=== PATIENT | female | born 1990 | race Caucasian/White ===

== ENCOUNTER 2017-08-09 17:41 | Emergency (ER) | payer BC, MEDICAID ==
[2017-08-09] MEDS ORDERED: 0.9 % SODIUM CHLORIDE 1,000 ML BAG IV ONE ×2 (18:05→18:37)
--- NOTE | 2017-08-09 18:09 | Emergency Department Record ---
History of Present Illness - General Chief complaint: Nausea, Vomiting, Diarrhea Stated complaint: DIARRHEA,ABD PAIN Time Seen by Provider: 08/09/17 18:01 Source: Patient Mode of Arrival: Ambulatory Limitations: No limitations - History of Present Illness Initial comments: The patient is here due to a 14 hour hx of very frequent watery diarrhea with abdominal cramping. She states she has been having the stools every 30 minutes at times and but denies any fever, vomiting, blood in the stool, recent travel or antibiotic use. She feels she may be getting dehydrated and would like IVF. The patient does have mild nausea but does not want anything for it. The patient has no hx of any abdominal surgeries and her LMP was 3 weeks ago. MD complaint: Diarrhea Onset/Timin -: Days(s) Description of Diarrhea: Water Associated Abdominal Pain: Yes Location: Diffuse Severity: Moderate Severity scale (1-10): 6 Quality: Cramping Consistency: Intermittent Improves with: None Worsens with: None - Related Data Home Medications Medication Instructions Recorded Confirmed Last Taken No Home Med [NO HOME MEDS] 08/09/17 08/09/17 Unknown Allergies Allergy/AdvReac Type Severity Reaction Status Date / Time No Known Drug Allergies Allergy Verified 08/09/17 17:58 Travel Screening - Travel/Exposure Within Last 30 Days Have you traveled within the last 30 days?: No Review of Systems Constitutional: Denies: Chills, Fever Eyes: Denies: Eye discharge ENT: Denies: Congestion Respiratory: Denies: Cough, Dyspnea Past Medical History - SOCIAL HISTORY Smoking Status: Never smoker Alcohol Use: None Drug Use: None - RESPIRATORY Hx Respiratory Disorders: No - CARDIOVASCULAR Hx Cardio Disorders: No - NEURO Hx Neuro Disorders: No - GI Hx GI Disorders: No - Hx Genitourinary Disorders: No - ENDOCRINE Hx Endocrine Disorders: No Hx Diabetes: No Hx Thyroid Disease: No - MUSCULOSKELETAL Hx Musculoskeletal Disorders: No - PSYCH Hx Psych Problems: No - HEMATOLOGY/ONCOLOGY Hx Hematology/Oncology Disorders: No Family Medical History Any Significant Family History?: Yes Hx Cancer: Mother, Grandparents Hx Diabetes: Grandparents Hx Heart Disease: Father, Grandparents Hx HTN: Mother Hx Kidney Disease: Mother Physical Exam - General General Appearance: Alert, Oriented x3, Cooperative, No acute distress - Head Head exam: Atraumatic, Normocephalic, Normal inspection - Eye Eye exam: Normal appearance, PERRL - ENT Throat exam: Normal inspection. negative: Tonsillar erythema, Tonsillar exudate - Neck Neck exam: Normal inspection, Full ROM. negative: Tenderness - Respiratory Respiratory exam: Normal lung sounds bilaterally. negative: Respiratory distress - Cardiovascular Cardiovascular Exam: Regular rate, Normal rhythm, Normal heart sounds - GI/Abdominal GI/Abdominal exam: Soft, Normal bowel sounds, Hyperactive bowel sounds. negative: Distended, Rebound, Rigid, Tenderness - Extremities Extremities exam: Normal inspection, Full ROM, Normal capillary refill. negative: Tenderness - Neurological Neurological exam: Alert. negative: Motor sensory deficit Course Vital Signs 08/09/17 17:54 Temperature 98.3 F Pulse Rate 81 Respiratory 16 Rate Blood Pressure 120/69 Pulse Ox 100 - Reevaluation(s) Reevaluation #1: The patient is doing very well at this time. She denies any pain or discomfort. I did explain to her that her urine and lab results do look very good at this time. She did have a mildly elevated K+ but it appeared mildly hemolyzed to the laboratory immunologist. Taking that into account and also the fact she has no kidney or urine issues I strongly doubt any clinical significance of that result. She is to be rehydrated and will use an OTC anti-diarrheal agent if needed. 08/09/17 18:51 Medical Decision Making - Data Complexity MDM Data: Labs Ordered and/or Reviewed - Lab Data Result diagrams: 08/09/17 18:17 08/09/17 18:17 Disposition Disposition: Discharge Clinical Impression: Diarrhea Qualifiers: Diarrhea type: unspecified type Qualified Code(s): R19.7 - Diarrhea, unspecified Disposition: Home, Self-Care Condition: (2) Stable Instructions: Acute Diarrhea (ED) Additional Instructions: Please drink plenty of fluids and use an OTC anti-diarrheal agent as needed. Please see your PCP if not better and return to the ER for any worsening symptoms, fever, bleeding, vomiting, or pain. Forms: Patient Portal Access Time of Disposition: 18:55 Quality - Quality Measures Quality Measures: N/A - Blood Pressure Screening View Details: Yes Does Patient Have Any of the Following: No Blood Pressure Classification: Pre-Hypertensive BP Reading Systolic Measurement: 120 Diastolic Measurement: 69 Screening for High Blood Pressure: < Pre-Hypertensive BP, F/U Documented > [ G8950] Pre-Hypertensive Follow-up Interventions: Referral to alternative/primary care provider.
[2017-08-09 18:27] LABS: BASO % 0.1 % (0-6); EOS % 3.7 % (0-6); GRAN % 55.6 % (47-80); HEMATOCRIT 42.3 % (35.0-47.0); HEMOGLOBIN 14.1 gm/dl (11.6-16.0); LYMPH % 30.8 % (16-45); MEAN CELL VOLUME 88.7 fl (81-97); MEAN CORPUSCULAR HEMOGLOBIN 29.6 pg (27-33); MEAN CORPUSCULAR HGB CONC 33.3 g/dl (32-36); MEAN PLATELET VOLUME 11.9 fl (7.4-10.4); MONO % 9.8 % (0-9); PLATELET COUNT 246 K/uL (130-400); RED BLOOD COUNT 4.77 M/uL (3.80-5.40); RED CELL DISTRIBUTION WIDTH 13.7 % (11.5-14.5); WHITE BLOOD COUNT W/O DIFF 6.8 K/uL (4.2-12.2)
[2017-08-09 18:28] LABS: URINE APPEARANCE CLEAR; URINE BILIRUBIN NEGATIVE (NEGATIVE); URINE BLOOD NEGATIVE (NEGATIVE); URINE COLOR YELLOW; URINE GLUCOSE (UA) NEGATIVE (NEGATIVE); URINE KETONE NEGATIVE (NEGATIVE); URINE LEUKOCYTE ESTERASE NEGATIVE (NEGATIVE); URINE NITRITE NEGATIVE (NEGATIVE); URINE PROTEIN NEGATIVE (NEGATIVE); URINE UROBILINOGEN 0.2 E.U./dL (0.20 - 1.00)
[2017-08-09 18:30] LABS: HCG,QUALITATIVE URINE NEGATIVE (NEGATIVE)
[2017-08-09 18:32] LABS: BLOOD UREA NITROGEN 10 mg/dL (6-20); CREATININE 0.6 mg/dL (0.5-0.9); EST GLOMERULAR FILTRATION RATE > 60 mL/min
[2017-08-09 18:33] LABS: TOTAL PROTEIN 8.4 g/dL (6.6-8.7)
[2017-08-09 18:35] LABS: GLUCOSE,RANDOM 91 mg/dL (74-109)
[2017-08-09 18:37] LABS: ALB/GLOB RATIO 1.5 (1.1-1.8); ALKALINE PHOSPHATASE 64 U/L (35-104); ALT/SGPT 22 U/L (<33); AST/SGOT 36 U/L (10.0-35.0)
[2017-08-09 18:38] LABS: LIPASE 39 U/L (13-60)
== END 2017-08-09 19:48 | disposition home or self-care (01) ==
LOC: ER 17:41
DX: R19.7 Diarrhea, unspecified (principal); R11.0 Nausea; R10.9 Unspecified abdominal pain
CPT/HCPCS: 80053; 81003; 81025; 83690; 85025; 99284; J7030

== ENCOUNTER 2018-10-11 19:23 | Emergency (ER) | payer MEDICAID ==
[2018-10-11] MEDS ORDERED: 0.9 % SODIUM CHLORIDE 1,000 ML BAG IV ONE (19:54)
[2018-10-11] MEDS ORDERED: DIPHENHYDRAMINE HCL 50 MG/ML VIAL IVP ONE (19:54)
[2018-10-11 20:12] LABS: EOS % 1.7 % (0-6); GRAN % 59.9 % (47-80); HEMOGLOBIN 12.1 gm/dl (11.6-16.0); LYMPH % 30.8 % (16-45); MEAN CELL VOLUME 89.1 fl (81-97); MEAN CORPUSCULAR HGB CONC 33.6 g/dl (32-36); MEAN PLATELET VOLUME 10.9 fl (7.4-10.4); MONO % 7.6 % (0-9); PLATELET COUNT 209 K/uL (130-400); RED BLOOD COUNT 4.04 M/uL (3.80-5.40); RED CELL DISTRIBUTION WIDTH 12.9 % (11.5-14.5)
--- NOTE | 2018-10-11 20:16 | Emergency Department Record ---
History of Present Illness - General Chief complaint: Allergic Reaction Stated complaint: REACTION TO MEDS Time Seen by Provider: 10/11/18 19:41 Source: Patient Mode of Arrival: Ambulatory Limitations: No limitations - History of Present Illness Initial Comments: pt recently had her prozac increased from 40mg to 50mg for 2 days. pt has shakes, feels tingly, has hives she thinks, dizziness , nausea, flushed face, feels hot and not thinking clearly. she is taking the prozac for anxiety and depression MD Complaint: Hives, Other Onset/Timin -: Days(s) Exposure: Medication Symptoms: Dizziness, Nausea Severity: Mild Treatment Prior to Arrival: None Previous Allergy History: None - Related Data Home Medications Medication Instructions Recorded Confirmed Last Taken Fluoxetine HCl [Prozac] 50 mg PO DAILY 10/11/18 10/11/18 Unknown Allergies Allergy/AdvReac Type Severity Reaction Status Date / Time adhesive Allergy Unverified 10/01/18 16:20 latex Allergy Unverified 10/01/18 16:20 Travel Screening - Travel/Exposure Within Last 30 Days Have you traveled within the last 30 days?: No Review of Systems Reviewed: No additional complaints except as noted below Constitutional: Reports: As per HPI. Denies: Chills, Fever, Malaise, Night sweats, Weakness, Weight change Eyes: Reports: As per HPI. Denies: Eye discharge, Eye pain, Photophobia, Vision change ENT: Reports: As per HPI. Denies: Congestion, Dental pain, Ear pain, Epistaxis , Hearing loss, Throat pain Respiratory: Reports: As per HPI. Denies: Cough, Dyspnea, Hemoptysis, Stridor, Wheezes Cardiovascular: Reports: As per HPI. Denies: Arrhythmia, Chest pain, Dyspnea on exertion, Edema, Murmurs, Orthopnea, Palpitations, Paroxysmal nocturnal dyspnea, Rheumatic Fever, Syncope Endocrine: Reports: As per HPI. Denies: Fatigue, Heat or cold intolerance, Polydipsia, Polyuria Gastrointestinal: Reports: As per HPI. Denies: Abdominal pain, Constipation, Diarrhea, Hematemesis, Hematochezia, Melena, Nausea, Vomiting Genitourinary: Reports: As per HPI. Denies: Abnormal menses, Discharge, Dyspareunia, Dysuria, Frequency, Hematuria, Incontinence, Retention, Urgency Musculoskeletal: Reports: As per HPI. Denies: Arthralgia, Back pain, Gout, Joint swelling, Myalgia, Neck pain Skin: Reports: As per HPI. Denies: Bruising, Change in color, Change in hair/ nails, Lesions, Pruritus, Rash Neurological: Reports: As per HPI. Denies: Abnormal gait, Confusion, Headache, Numbness, Paresthesias, Seizure, Tingling, Tremors, Vertigo, Weakness Psychiatric: Reports: As per HPI. Denies: Anxiety, Auditory hallucinations, Depression, Homicidal thoughts, Suicidal thoughts, Visual hallucinations Hematological/Lymphatic: Reports: As per HPI. Denies: Anemia, Blood Clots, Easy bleeding, Easy bruising, Swollen glands Past Medical History - SOCIAL HISTORY Smoking Status: Never smoker Alcohol Use: Occasional Drug Use: None - RESPIRATORY Hx Respiratory Disorders: No - CARDIOVASCULAR Hx Cardio Disorders: No - NEURO Hx Neuro Disorders: No - GI Hx GI Disorders: No - Hx Genitourinary Disorders: No - ENDOCRINE Hx Endocrine Disorders: No Hx Diabetes: No Hx Thyroid Disease: No - MUSCULOSKELETAL Hx Musculoskeletal Disorders: Yes Hx Arthritis: Yes - PSYCH Hx Psych Problems: Yes Hx Anxiety: Yes Hx Depression: Yes - HEMATOLOGY/ONCOLOGY Hx Hematology/Oncology Disorders: No Family Medical History Any Significant Family History?: Yes Hx Cancer: Mother, Grandparents Hx Diabetes: Grandparents Hx Heart Disease: Father, Grandparents Hx HTN: Mother Hx Kidney Disease: Mother Physical Exam - General General Appearance: Alert, Oriented x3, Cooperative, Mild distress - Head Head exam: Normal inspection - Eye Eye exam: Normal appearance, PERRL, EOMI Pupils: Normal accommodation - ENT ENT exam: Normal exam, Mucous membranes moist, Normal external ear exam, Normal orophraynx Ear exam: Normal external inspection. negative: External canal tenderness Nasal Exam: Normal inspection. negative: Discharge, Sinus tenderness Mouth exam: Normal external inspection, Tongue normal Teeth exam: Normal inspection. negative: Dental caries Throat exam: Normal inspection. negative: Tonsillar erythema, Tonsillar exudate - Neck Neck exam: Normal inspection, Full ROM. negative: Tenderness - Respiratory Respiratory exam: Normal lung sounds bilaterally. negative: Respiratory distress - Cardiovascular Cardiovascular Exam: Regular rate, Normal rhythm, Normal heart sounds - GI/Abdominal GI/Abdominal exam: Soft, Normal bowel sounds. negative: Tenderness - Rectal Rectal exam: Deferred - exam: Deferred - Extremities Extremities exam: Normal inspection, Full ROM, Normal capillary refill. negative: Tenderness - Back Back exam: Reports: Normal inspection, Full ROM. Denies: Muscle spasm, Rash noted, Tenderness - Neurological Neurological exam: Alert, CN II-XII intact, Normal gait, Oriented X3 - Psychiatric Psychiatric exam: Normal affect, Normal mood - Skin Skin exam: Dry, Intact, Normal color, Warm Course Vital Signs 10/11/18 19:28 Temperature 98.2 F Pulse Rate [ 64 Left] Respiratory 16 Rate Blood Pressure 129/87 [Left Arm] Pulse Ox 100 - Reevaluation(s) Reevaluation #1: 10/11/18 21:15 pt feels better Medical Decision Making - Lab Data Result diagrams: 10/11/18 20:00 10/11/18 20:00 Disposition Disposition: Discharge Clinical Impression: Medication reaction Qualifiers: Encounter type: initial encounter Qualified Code(s): T50.905A - Adverse effect of unspecified drugs, medicaments and biological substances, initial encounter Disposition: Home, Self-Care Condition: (1) Good Instructions: Adverse Drug Reaction (ED) Additional Instructions: stop extra 10mg of prozac until you talk to your family doctor. continue 40mg normal dose. return sooner if worse Quality - Quality Measures Quality Measures: N/A - Blood Pressure Screening Does Patient Have Any of the Following: No Blood Pressure Classification: Pre-Hypertensive BP Reading Systolic Measurement: 129 Diastolic Measurement: 87 Screening for High Blood Pressure: < Pre-Hypertensive BP, F/U Documented > [ G8950] Pre-Hypertensive Follow-up Interventions: Follow-up with rescreen every year.
[2018-10-11 20:20] LABS: BLOOD UREA NITROGEN 13 mg/dL (6-20); CREATININE 0.5 mg/dL (0.5-0.9); EST GLOMERULAR FILTRATION RATE > 60 mL/min
[2018-10-11 20:23] LABS: GLUCOSE,RANDOM 101 mg/dL (74-109)
[2018-10-11 20:26] LABS: ALB/GLOB RATIO 1.9 (1.1-1.8); ALBUMIN 4.6 g/dL (4.0-5.0); ALKALINE PHOSPHATASE 40 U/L (35-104); ALT/SGPT 11 U/L (<33); AST/SGOT 13 U/L (10.0-35.0)
[2018-10-11 20:54] LABS: URINE APPEARANCE CLEAR; URINE BILIRUBIN NEGATIVE (NEGATIVE); URINE BLOOD TRACE-I (NEGATIVE); URINE COLOR YELLOW; URINE GLUCOSE (UA) NEGATIVE (NEGATIVE); URINE KETONE NEGATIVE (NEGATIVE); URINE LEUKOCYTE ESTERASE SMALL (NEGATIVE); URINE NITRITE NEGATIVE (NEGATIVE); URINE PROTEIN NEGATIVE (NEGATIVE); URINE UROBILINOGEN 0.2 E.U./dL (0.20 - 1.00)
[2018-10-11 20:56] LABS: HCG,QUALITATIVE URINE NEGATIVE (NEGATIVE)
[2018-10-11 20:59] LABS: URINE BACTERIA FEW; URINE EPITHELIAL CELLS 16 - 20 (FEW); URINE RBC 0 - 2 (NONE SEEN); URINE WBC 0 - 2 (0-2/hpf)
== END 2018-10-11 21:34 | disposition home or self-care (01) ==
LOC: ER 19:23
DX: R42 Dizziness and giddiness (principal); T43.225A Adverse effect of selective serotonin reuptake inhibitors, initial encounter; R11.0 Nausea; R20.2 Paresthesia of skin
CPT/HCPCS: 80053; 81001; 81025; 85025; 96374; 99284; J1200; J7030